=== PATIENT | male | born 1945 | race Caucasian/White ===

== ENCOUNTER → 2017-09-29 19:06 | Outpatient (CLI) | payer MEDICARE, BC | END | disposition home or self-care (01) | LOC: D.LABREF 19:06 | DX: A04.72 Enterocolitis due to Clostridium difficile, not specified as recurrent (principal) ==

== ENCOUNTER 2018-01-31 13:34 | Day surgery (SDC) | payer MEDICARE, BC ==
[~2018-01-31] VITALS: Ht 190.5 cm; Wt 122.3 kg
--- NOTE | ~2018-01-31 | OP ---
PATIENT NAME: MICHEAL RAJAN MEDICAL RECORD: [id number] :47 LOCATION:[facility] ADMISSION DATE: SURGEON: BRIANNE SINCLAIR MD DATE OF OPERATION: 01/31/2018 PROCEDURE: Colonoscopy with stool collection for xTAG and colonoscopy with biopsy. GLASS INSTALLER: Brianne Sinclair MD SCOPE: Olympus video colonoscope. MEDICATIONS: Per TIVA. The patient received 250 mg of propofol for this procedure, O2 at 4 liters. INDICATION FOR THE PROCEDURE: Recurrent CDT infection in 2015. The patient has had negative stool studies, but continues with significant diarrhea. FINDINGS: Informed consent was given. The patient was made comfortable with the above medications. After reaching an adequate level of sedation by slow IV push, the patient was placed on his left side. The rectal exam revealed very poor sphincter tone. No fissures or fistulas were appreciated. No external skin tags were seen. The colonoscope was advanced to the cecum, where the ileocecal valve and appendiceal orifice were identified. The small bowel was intubated and tissue was normal. On withdrawal of the scope, mucosa was carefully inspected. Mucosa throughout the entire colon was normal except in the rectum, where some mild inflammation was appreciated and biopsies were obtained. Additionally, the patient had pandiverticulosis without diverticulitis. On retroflexion and final withdrawal of the scope, internal hemorrhoids were seen. The scope was then withdrawn. IMPRESSION: 1. The patient with a xwbf-ym-hjvj prep. 2. Pandiverticulosis without diverticulitis. 3. Normal small bowel. 4. Normal colon tissue, but the rectum had some mild inflammation. Biopsies were obtained. We also collected stool for parasites, viruses, and bacteria to include CDT colitis. 4. Pandiverticulosis without diverticulitis. 5. Small internal hemorrhoids. 6. Poor rectal sphincter tone. PLAN: 1. The patient should eat a good high-fiber diet. 2. No caffeine. 3. No anti-inflammatory drugs which can cause a collagenous colitis. 4. Keep a food diary to determine what foods might set off his diarrhea. 5. Apjl-vtm-yansnta Imodium p.r.n., no more than 8 tablets a day. 6. Questran Light as he has diabetes, one packet b.i.d., not to be taken within one hour of other medicines. 7. Probiotics. TRANSINT:[id number] Voice Confirmation ID: [id number] DOCUMENT ID: [id number] CC: Dr. Tomlinson OPERATIVE REPORT [id number] MICHEAL RAJAN BRENDA MD at 1304 CC: HARLEY MEYERS [id number] DICTATION DATE: 01/31/18 1613 [facility] WAITER/WAITRESS: 01/31/18 1815 [facility] SDC 01/31/18 [place] [id number] [place] [id number]
[2018-01-31 14:04] LABS: HEMATOCRIT 42.7 % (42.0-54.0); HEMOGLOBIN 14.8 g/dL (13.5-17.5); MCH 32.1 pg (26.0-34.0); MCHC 34.7 g/dL (31.0-37.0); MCV 92.6 fL (80.0-100.0); MEAN PLATELET VOLUME 8.7 fL (7.4-10.4); RBC 4.61 10x6/uL (4.20-6.10); RDW 12.4 % (11.5-14.5); WBC 7.2 10x3/uL (4.8-10.8)
[2018-01-31 14:12] LABS: ANION GAP 11.8 mmol/L (8-16); CALCIUM 8.7 mg/dL (8.5-10.1); CARBON DIOXIDE 28.6 mmol/L (21.0-32.0); CREATININE - SERUM 1.2 mg/dL (0.6-1.3); POTASSIUM - SERUM 4.4 mmol/L (3.5-5.1)
[2018-01-31 14:28] VITALS: BP 105/68; Ht 190.5 cm; Wt 122.3 kg
[2018-01-31] MEDS ORDERED: ELIQUIS5 MG (14:44)
[2018-01-31] MEDS ORDERED: CILOSTAZOL50 MG PO (14:45)
[2018-01-31] MEDS ORDERED: CARVEDILOL TAB 3.1 (14:45)
[2018-01-31] MEDS ORDERED: GLUCOPHAGE1000 MG PO (14:45)
[2018-01-31] MEDS ORDERED: LOPRESSOR25 MG PO (14:46)
[2018-01-31] MEDS ORDERED: LEVOCETIRIZINE 5 MG (14:46)
[2018-01-31] MEDS ORDERED: IPRATROPIUM SPR 0.0 (14:46)
[2018-01-31] MEDS ORDERED: PAXIL20 MG PO (14:46)
[2018-01-31] MEDS ORDERED: DONEPEZIL (14:47)
[2018-01-31] MEDS ORDERED: ISOSORBIDE MONO30 M1 PO (14:47)
[2018-01-31] MEDS ORDERED: LIPITOR40 MG PO (14:47)
[2018-01-31] MEDS ORDERED: TOUJEO SOL300 UNIT/1 (14:49)
== END 2018-01-31 17:01 | disposition home or self-care (01) ==
LOC: D.OPS 13:34
PROVIDERS: Anesthesiology
DX: K57.30 Diverticulosis of large intestine without perforation or abscess without bleeding (principal); K64.8 Other hemorrhoids; R19.7 Diarrhea, unspecified; Z01.812 Encounter for preprocedural laboratory examination

== ENCOUNTER 2018-04-13 19:19 | Inpatient (IN) | payer MEDICARE, BC ==
[~2018-04-13] VITALS: Ht 190.5 cm; Wt 117.0 kg
--- NOTE | ~2018-04-13 | MORECARE ---
CASE MANAGEMENT DISCHARGE SUMMARY PATIENT: MICHEAL RAJAN UNIT: [id number] ADM DATE: 04/13/18 AGE: 72 : 46 SEX: M ROOM/BED: D.2211 AUTHOR: KYLE,DOC PHYSICIAN: REFERRING PHYSICIAN: BONI SUAREZ MD DATE OF SERVICE: 04/16/18 Discharge Plan Patient Name: MICHEAL RAJAN Facility: [facility]:[place] : 1945 Planned Disposition: Inpatient Rehab Anticipated Discharge Date: Discharge Date: Expected LOS: Initial Reviewer: [email or web address] Initial Review Date: 04/13/2018 Generated: 04/16/18 9:43 pm Comments DCP- Discharge Planning Updated by [email or web address]: Emmanuelle Brennan on 04/16/18 7:[address] Late afternoon physical therapy eval/ no OT eval/ no rehab screen/ patient stating at he wants to go home as per the [facility] notes. Physical therapy states he ambulated 100 ft w/ SBA. CM advised he will be a late discharge awaiting pt response to late GI procedure. 193- Patient states he did not know he was being discharge. Daughter stated she did not know he was being discharged. Daughter will be coming into [facility]. CM notified patient is cleared for discharge by MD. FIELDS to [facility] regarding possible discharge. Awaited CB to confirm patient is on service. Nurse called back. CM on 2 other calls. [facility] salesperson meats nurse left message hat patient is active on service. Discharge orders as presently written faxed with discharge summary to [facility]. Will F/U in the AM. DCP- Discharge Planning Updated by [id number]: Emmanuelle Brennan on 04/15/18 6:[address] LATE ENTRY PATIENT'S DAUGHTER, PATRICIO RAJAN, CALLED TO REQUEST PATIENT HAVE REHAB BEFORE RETURNING TO HOME. SHE STATES HE IS WEAK. THER ARE NO STEPS TO ENTER THE HOME BUT HE HAS 10 STEPS TOTO HIS BEDROOM ON THE TOP FLOOR THEN AN ADDITIONAL 8 STEPS. SHE REPORTS HE HAS HX OF DIZZINESS AND FALLING. HE HAS A CANE AND WALKER BUT RARELY UTILIZE THEM. NO ADDITIONAL DME. NO SAFETY BARS OR HANDLES. SHE RECENTLY RELOCATED TO ASSIST HER FATHER (6 MONTHS AGO). SHE IS HIS ONLY CHILD. PT/OT CONSULT ORDERS OBTAINED. ACUTE REHAB PRESCREEN REQUESTED OBTAINED. DAUGHTER IS PRIMARY AMPOULE EXAMINER. CORRECTION- PATIENT HAS [facility] FOR NURSING AND PHYSICAL THERAPY. CM TO FOLLOW TO [facility]. TC TO [facility], REHAB SCREENER, FOR THIS WEEKEND WITH REFERRAL. DCPIA - Discharge Planning Initial Assessment Updated by [id number]: Emmanuelle Brennan on 04/15/18 7:20 pm * Is the patient Alert and Oriented? Yes * How many steps to enter\exit or inside your home? NONE * PCP DR RAMIREZ * Pharmacy [facility] ON [address] [place] * Preadmission Environment Home with Family * ADLs Partial Dependent * Partial ADLs (Assistance needed) Bathing Dressing Medication Management * Equipment Cane Rolling Walker * Other Equipment NONE * List name and contact numbers for known caregivers / representatives who currently or will assist patient after discharge: PATRICIO RAJAN - DAUGHTER - [phone] * Verbal permission to speak to the caregivers and representatives has been obtained from the patient. No * Community resources currently utilized None * Additional services required to return to the preadmission environment? Yes * Can the patient safely return to the preadmission environment? Yes * Has this patient been hospitalized within the prior 30 days at any hospital? No Last DP export: 04/15/18 6:32 Patient Name: MICHEAL RAJAN Page 21603 at 204 All edits/amendments must be made on the electronic document DICTATION DATE: 04/16/182042 IN SERVICE EDUCATOR: CHARITY 04/16/182042 RPT#: [id number] DC DATE: STATUS: ADM IN [facility] [address] [place] [address] END OF REPORT
--- NOTE | ~2018-04-13 | MORECARE ---
CASE MANAGEMENT DISCHARGE SUMMARY PATIENT: MICHEAL RAJAN UNIT: [id number] ADM DATE: 04/13/18 AGE: 72 : 46 SEX: M ROOM/BED: D.2211 AUTHOR: SUJIT WRIGHT PHYSICIAN: REFERRING PHYSICIAN: BONI SUAREZ MD DATE OF SERVICE: 04/15/18 Discharge Plan Patient Name: MICHEAL RAJAN [facility] [facility] 1945 Planned Disposition: Inpatient Rehab Anticipated Discharge Date: Discharge Date: Expected LOS: Initial Reviewer: [email or web address] Initial Review Date: 04/13/2018 Generated: 04/15/18 8:20 pm DCPIA - Discharge Planning Initial Assessment Updated by [id number]: Emmanuelle Brennan on 04/15/18 7:20 pm * Is the patient Alert and Oriented? Yes * How many steps to enter\exit or inside your home? NONE * PCP DR RAMIREZ * Pharmacy [facility] ON [place] * Preadmission Environment Home with Family * ADLs Partial Dependent * Partial ADLs (Assistance needed) Bathing Dressing Medication Management * Equipment Cane Rolling Walker * Other Equipment NONE * List name and contact numbers for known caregivers / representatives who currently or will assist patient after discharge: PATRICIO RAJAN - DAUGHTER - [phone] * Verbal permission to speak to the caregivers and representatives has been obtained from the patient. No * Community resources currently utilized None * Additional services required to return to the preadmission environment? Yes * Can the patient safely return to the preadmission environment? Yes * Has this patient been hospitalized within the prior 30 days at any hospital? No Patient Name: MICHEAL RAJAN Page 05784 at 1920 All edits/amendments must be made on the electronic document DICTATION DATE: 04/15/181919 BINDERY PRODUCTION MANAGER: CHARITY 04/15/181919 RPT#: [id number] DC DATE: STATUS: ADM IN [facility] [address] [place] [address] END OF REPORT
--- NOTE | ~2018-04-13 | MORECARE ---
CASE MANAGEMENT DISCHARGE SUMMARY PATIENT: MICHEAL RAJAN UNIT: [id number] ADM DATE: 04/13/18 AGE: 72 : 46 SEX: M ROOM/BED: D.2211 AUTHOR: KYLEDOC PHYSICIAN: REFERRING PHYSICIAN: BONI SUAREZ MD DATE OF SERVICE: 04/15/18 Discharge Plan Patient Name: MICHEAL RAJAN Facility: [facility]:[place] : 1945 Planned Disposition: Inpatient Rehab Anticipated Discharge Date: Discharge Date: Expected LOS: Initial Reviewer: [email or web address] Initial Review Date: 04/13/2018 Generated: 04/15/18 8:32 pm Comments DCP- Discharge Planning Updated by [email or web address]: Emmanuelle Brennan on 04/15/18 6:[address] LATE ENTRY PATIENT'S DAUGHTER, PATRICIO RAJAN, CALLED TO REQUEST PATIENT HAVE REHAB BEFORE RETURNING TO HOME. SHE STATES HE IS WEAK. THER ARE NO STEPS TO ENTER THE HOME BUT HE HAS 10 STEPS TOTO HIS BEDROOM ON THE TOP FLOOR THEN AN ADDITIONAL 8 STEPS. SHE REPORTS HE HAS HX OF DIZZINESS AND FALLING. HE HAS A CANE AND WALKER BUT RARELY UTILIZE THEM. NO ADDITIONAL DME. NO SAFETY BARS OR HANDLES. SHE RECENTLY RELOCATED TO ASSIST HER FATHER (6 MONTHS AGO). SHE IS HIS ONLY CHILD. PT/OT CONSULT ORDERS OBTAINED. ACUTE REHAB PRESCREEN REQUESTED OBTAINED. DAUGHTER IS PRIMARY SENIOR PROPERTY ACCOUNTANT. CORRECTION- PATIENT HAS [facility] FOR NURSING AND PHYSICAL THERAPY. CM TO FOLLOW TO [facility]. TC TO [facility], REHAB SCREENER, FOR THIS WEEKEND WITH REFERRAL. DCPIA - Discharge Planning Initial Assessment Updated by [id number]: Emmanuelle Brennan on 04/15/18 7:20 pm * Is the patient Alert and Oriented? Yes * How many steps to enter\exit or inside your home? NONE * PCP DR RAMIREZ * Pharmacy [facility] [place] * Preadmission Environment Home with Family * ADLs Partial Dependent * Partial ADLs (Assistance needed) Bathing Dressing Medication Management * Equipment Cane Rolling Walker * Other Equipment NONE * List name and contact numbers for known caregivers / representatives who currently or will assist patient after discharge: PATRICIO RAJAN - DAUGHTER - [phone] * Verbal permission to speak to the caregivers and representatives has been obtained from the patient. No * Community resources currently utilized None * Additional services required to return to the preadmission environment? Yes * Can the patient safely return to the preadmission environment? Yes * Has this patient been hospitalized within the prior 30 days at any hospital? No Last DP export: 04/15/18 6:20 Patient Name: MICHEAL RAJAN Page 14355 at 1933 All edits/amendments must be made on the electronic document DICTATION DATE: 04/15/181931 SHIPPING CLERK: CHARITY 04/15/181931 RPT#: [id number] NE DATE: STATUS: ADM IN [facility] [address] [place] [address] END OF REPORT
--- NOTE | ~2018-04-13 | MORECARE ---
CASE MANAGEMENT DISCHARGE SUMMARY PATIENT: MICHEAL RAJAN UNIT: [id number] ADM DATE: 04/13/18 AGE: 72 : 46 SEX: M ROOM/BED: D.2211 AUTHOR: KYLE,DOC PHYSICIAN: REFERRING PHYSICIAN: BONI SUAREZ MD DATE OF SERVICE: 04/17/18 Discharge Plan Patient Name: MICHEAL RAJAN Facility: [facility]:[place] : 1945 Planned Disposition: Inpatient Rehab Anticipated Discharge Date: Discharge Date: 04/16/2018 Expected LOS: Initial Reviewer: [email or web address] Initial Review Date: 04/13/2018 Generated: 04/17/18 4:04 pm Comments DCP- Discharge Planning Updated by [email or web address]: Emmanuelle Brennan on 04/16/18 7:[address] Late afternoon physical therapy eval/ no OT eval/ no rehab screen/ patient stating at he wants to go home as per the [facility] notes. Physical therapy states he ambulated 100 ft w/ SBA. CM advised he will be a late discharge awaiting pt response to late GI procedure. 1930- Patient states he did not know he was being discharge. Daughter stated she did not know he was being discharged. Daughter will be coming into [facility]. CM notified patient is cleared for discharge by MD. FIELDS to [facility] regarding possible discharge. Awaited CB to confirm patient is on service. Nurse called back. CM on 2 other calls. [facility] mail distribution scheme examiner nurse left message hat patient is active on service. Discharge orders as presently written faxed with discharge summary to [facility]. Will F/U in the AM. DCP- Discharge Planning Updated by [id number]: Emmanuelle Brennan on 04/15/18 6:[address] LATE ENTRY PATIENT'S DAUGHTER, PATRICIO RAJAN, CALLED TO REQUEST PATIENT HAVE REHAB BEFORE RETURNING TO HOME. SHE STATES HE IS WEAK. THER ARE NO STEPS TO ENTER THE HOME BUT HE HAS 10 STEPS TOTO HIS BEDROOM ON THE TOP FLOOR THEN AN ADDITIONAL 8 STEPS. SHE REPORTS HE HAS HX OF DIZZINESS AND FALLING. HE HAS A CANE AND WALKER BUT RARELY UTILIZE THEM. NO ADDITIONAL DME. NO SAFETY BARS OR HANDLES. SHE RECENTLY RELOCATED TO ASSIST HER FATHER (6 MONTHS AGO). SHE IS HIS ONLY CHILD. PT/OT CONSULT ORDERS OBTAINED. ACUTE REHAB PRESCREEN REQUESTED OBTAINED. DAUGHTER IS PRIMARY PHP MYSQL DEVELOPER. CORRECTION- PATIENT HAS [facility] FOR NURSING AND PHYSICAL THERAPY. CM TO FOLLOW TO [facility]. TC TO [facility], REHAB SCREENER, FOR THIS WEEKEND WITH REFERRAL. DCPIA - Discharge Planning Initial Assessment Updated by [email or web address]: Emmanuelle Brennan on 04/15/18 7:20 pm * Is the patient Alert and Oriented? Yes * How many steps to enter\exit or inside your home? NONE * PCP DR RAMIREZ * [facility]acy [facility] [address] * Preadmission Environment Home with Family * ADLs Partial Dependent * Partial ADLs (Assistance needed) Bathing Dressing Medication Management * Equipment Cane Rolling Walker * Other Equipment NONE * List name and contact numbers for known caregivers / representatives who currently or will assist patient after discharge: PATRICIO RAJAN - DAUGHTER - [phone] * Verbal permission to speak to the caregivers and representatives has been obtained from the patient. No * Community resources currently utilized None * Additional services required to return to the preadmission environment? Yes * Can the patient safely return to the preadmission environment? Yes * Has this patient been hospitalized within the prior 30 days at any hospital? No Last DP export: 04/16/18 7:43 Patient Name: MICHEAL RAJAN Page [phone] at 1504 All edits/amendments must be made on the electronic document DICTATION DATE: 04/17/18 150 CATSHOVEL DRIVER: CHARITY 04/17/18 1504 RPT#: [id number] DC DATE:04/16/18 STATUS: DIS IN [facility] [address] [place] [address] END OF REPORT
[~2018-04-13 19:19] MED LIST: CARVEDILOL TAB 3.1; CILOSTAZOL50 MG PO; DONEPEZIL; ELIQUIS5 MG PO; GLUCOPHAGE1000 MG PO; IPRATROPIUM SPR 0.0; ISOSORBIDE MONO30 M1 PO; LEVOCETIRIZINE 5 MG PO; LIPITOR40 MG PO; LOPRESSOR25 MG PO; PAXIL20 MG PO; TOUJEO SOL300 UNIT/1
[2018-04-13] MEDS ORDERED: TRESIBA FL100 UNIT/1 SC (23:47)
[2018-04-14 00:13] LABS: HEMATOCRIT 36.1 % (42.0-54.0); HEMOGLOBIN 12.4 g/dL (13.5-17.5)
[2018-04-14 00:58] VITALS: BP 121/74
[2018-04-14] MEDS ORDERED: ZOFRAN ODT4 MG/UDTAB PO (01:49)
[2018-04-14] MEDS ORDERED: PHENERGAN25 M1 PO (01:51)
[2018-04-14] MEDS ORDERED: BAYER CHEWABLE81 MG PO (01:52)
[2018-04-14] MEDS ORDERED: MULTI-DAY VITAM1 TAB PO (01:53)
[2018-04-14] MEDS ORDERED: FLOMAX0.4 MG PO (01:54)
[2018-04-14] MEDS ORDERED: DONEPEZIL HCL10 MG PO (02:02)
[2018-04-14] MEDS ORDERED: ASCORBIC ACID500 MG PO (02:03)
[2018-04-14] MEDS ORDERED: NORVASC5 MG PO (02:03)
[2018-04-14] MEDS ORDERED: GLUCOTROL 5 MG T5 MG PO (02:18)
[2018-04-14] MEDS ORDERED: REMERON15 MG PO (02:19)
[2018-04-14 02:55] VITALS: BP 134/80; BMI 31.3
[2018-04-14 05:29] LABS: BASOPHILS 0.2 % (0-2); EOSINOPHILS 2.2 % (0-7); HEMATOCRIT 35.7 % (42.0-54.0); HEMOGLOBIN 12.5 g/dL (13.5-17.5); LYMPHOCYTES 30.3 % (15-50); MCH 31.6 pg (26.0-34.0); MCV 90.2 fL (80.0-100.0); MONOCYTES 13.5 % (2-11); NEUTROPHILS 53.8 % (40-80); RBC 3.96 10x6/uL (4.20-6.10); RDW 12.9 % (11.5-14.5); WBC 5.5 10x3/uL (4.8-10.8)
[2018-04-14 05:30] LABS: PLATELET COUNT 168 10x3/uL (130-400)
[2018-04-14 05:33] LABS: APTT 23.7 SECONDS (22.8-39.4); INR 1.16 (0.85-1.17); PROTIME 14.3 SECONDS (11.6-15.0)
[2018-04-14 05:44] VITALS: BP 125/86
[2018-04-14 05:47] LABS: ALBUMIN 2.9 g/dL (3.4-5.0); ALKALINE PHOSPHATASE 80 U/L (46-116); ALT (SGPT) 34 U/L (10-68); BILIRUBIN - TOTAL 0.71 mg/dL (0.2-1.3); CALC OSMOLALITY 281 mosm/kg (275-300); CALCIUM 8.2 mg/dL (8.5-10.1); CARBON DIOXIDE 22.7 mmol/L (21.0-32.0); CHLORIDE - SERUM 105 mmol/L (98-107); GLUCOSE 133 mg/dL (74-106); POTASSIUM - SERUM 3.4 mmol/L (3.5-5.1); PROTEIN - SERUM 6.5 g/dL (6.4-8.2); SODIUM 139 mmol/L (136-145); UREA NITROGEN 17 mg/dL (7-18); eGFR NON AFRICAN AMERICAN 78 mL/min (90-120)
[2018-04-14 08:01] VITALS: BP 131/66
[2018-04-14 09:10] LABS: AMYLASE - SERUM 21 U/L (25-115); LIPASE 75 U/L (73-393)
[2018-04-14 12:07] VITALS: Ht 190.5 cm; Wt 117.0 kg
[2018-04-14 16:35] VITALS: BP 126/67
[2018-04-14 20:00] VITALS: BP 108/66
[2018-04-15] VITALS: BP 140/72
[2018-04-15 04:00] VITALS: BP 114/61
[2018-04-15 06:28] LABS: BASOPHILS 0.2 % (0-2); EOSINOPHILS 2.9 % (0-7); HEMATOCRIT 36.4 % (42.0-54.0); HEMOGLOBIN 12.6 g/dL (13.5-17.5); IMMATURE GRANULOCYTES 0.2 % (0-5); LYMPHOCYTES 26.3 % (15-50); MCH 31.4 pg (26.0-34.0); MCHC 34.6 g/dL (31.0-37.0); MCV 90.8 fL (80.0-100.0); MONOCYTES 10.7 % (2-11); NEUTROPHILS 59.7 % (40-80); PLATELET COUNT 167 10x3/uL (130-400); RBC 4.01 10x6/uL (4.20-6.10); RDW 12.8 % (11.5-14.5); WBC 5.5 10x3/uL (4.8-10.8)
[2018-04-15 06:57] LABS: CALCIUM 8.1 mg/dL (8.5-10.1); CARBON DIOXIDE 23.6 mmol/L (21.0-32.0); CHLORIDE - SERUM 107 mmol/L (98-107); POTASSIUM - SERUM 3.5 mmol/L (3.5-5.1); SODIUM 143 mmol/L (136-145); eGFR NON AFRICAN AMERICAN 78 mL/min (90-120)
[2018-04-15 07:08] LABS: CALC OSMOLALITY 282 mosm/kg (275-300); GLUCOSE 85 mg/dL (74-106); UREA NITROGEN 10 mg/dL (7-18)
[2018-04-15 08:36] VITALS: BP 148/91
[2018-04-15 13:15] VITALS: BP 173/92
[2018-04-15] MEDS ORDERED: FLORAJEN3 CAPS460 MG PO (14:25)
[2018-04-15] MEDS ORDERED: LEVOFLOXACIN500 MG PO (14:26)
[2018-04-15] MEDS ORDERED: FLAGYL500 MG PO (14:27)
[2018-04-15] MEDS ORDERED: PROTONIX40 MG PO (14:29)
[2018-04-15] MEDS ORDERED: CARAFATE1 G/10 ML PO (14:29)
[2018-04-15] MEDS ORDERED: PEPCID AC20 MG PO (14:29)
[2018-04-15 16:44] VITALS: BP 163/98
[2018-04-15 20:00] VITALS: BP 157/82
[2018-04-16] VITALS: BP 120/66
[2018-04-16 04:00] VITALS: BP 135/85
[2018-04-16 05:32] LABS: BASOPHILS 0.3 % (0-2); EOSINOPHILS 1.8 % (0-7); HEMATOCRIT 39.2 % (42.0-54.0); HEMOGLOBIN 13.5 g/dL (13.5-17.5); IMMATURE GRANULOCYTES 0.2 % (0-5); LYMPHOCYTES 23.3 % (15-50); MCH 31.3 pg (26.0-34.0); MCHC 34.4 g/dL (31.0-37.0); MEAN PLATELET VOLUME 9.2 fL (7.4-10.4); MONOCYTES 12.8 % (2-11); NEUTROPHILS 61.6 % (40-80); PLATELET COUNT 180 10x3/uL (130-400); RBC 4.31 10x6/uL (4.20-6.10); RDW 12.8 % (11.5-14.5)
[2018-04-16 05:57] LABS: ALBUMIN 3.2 g/dL (3.4-5.0); ALKALINE PHOSPHATASE 92 U/L (46-116); ALT (SGPT) 37 U/L (10-68); BILIRUBIN - TOTAL 0.89 mg/dL (0.2-1.3); CALC OSMOLALITY 281 mosm/kg (275-300); CALCIUM 8.7 mg/dL (8.5-10.1); CARBON DIOXIDE 25.4 mmol/L (21.0-32.0); CHLORIDE - SERUM 105 mmol/L (98-107); GLUCOSE 132 mg/dL (74-106); POTASSIUM - SERUM 3.7 mmol/L (3.5-5.1); PROTEIN - SERUM 7.1 g/dL (6.4-8.2); SODIUM 141 mmol/L (136-145); UREA NITROGEN 10 mg/dL (7-18); eGFR NON AFRICAN AMERICAN 78 mL/min (90-120)
[2018-04-16 09:09] VITALS: BP 125/98
[2018-04-16 12:50] VITALS: BP 106/62
[2018-04-16 16:43] VITALS: BP 122/73
[2018-04-16 16:59] VITALS: BP 122/73
== END 2018-04-16 20:55 | disposition home health service (06) | DRG 382 ==
LOC: D.MS 19:19
PROVIDERS: Family Medicine; Internal Medicine Gastroenterology
PROC: 0DB98ZX Excision of Duodenum, Via Natural or Artificial Opening Endoscopic, Diagnostic (ICD-10-PCS; principal; 2018-04-15 12:00)
DX: K22.10 Ulcer of esophagus without bleeding (principal); K44.9 Diaphragmatic hernia without obstruction or gangrene; K29.00 Acute gastritis without bleeding; K29.80 Duodenitis without bleeding; E87.6 Hypokalemia; I48.91 Unspecified atrial fibrillation; I25.10 Atherosclerotic heart disease of native coronary artery without angina pectoris; E11.9 Type 2 diabetes mellitus without complications

== ENCOUNTER 2018-07-04 08:39 | Day surgery (SDC) | payer MEDICARE, BC ==
[~2018-07-04] VITALS: Ht 190.5 cm; Wt 118.2 kg
--- NOTE | ~2018-07-04 | OP ---
PATIENT NAME: MICHEAL RAJAN MEDICAL RECORD: [id number] :47 LOCATION:[facility] ADMISSION DATE: SURGEON: BRIANNE SINCLAIR MD DATE OF OPERATION: 07/04/2018 PROCEDURE: EGD with biopsy. COORDINATE MEASURING MACHINE TECHNICIAN: Brianne Sinclair MD SCOPE: Olympus video gastroscope. MEDICATIONS: Provided were propofol 100 mg IV push, O2 of 4 liters. INDICATION FOR THE PROCEDURE: To document healing of distal esophageal ulcers, which were hemorrhagic 8 weeks ago via his last EGD dated 04/15/2018. He also had findings of Veloz's esophagus. FINDINGS: Informed consent was given. The patient was made comfortable with the above medications. After reaching an adequate level of sedation by slow IV push, the patient was placed on his left side. The endoscope was then advanced under direct visualization through the posterior pharyngeal area and advanced to the distal esophagus. The previously documented distal esophageal ulcers were seen to have healed, the patient, however, does have evidence of Veloz's esophagus and multiple biopsies were obtained. On entering the stomach, moderate inflammation was seen, most pronounced within the antral area. No ulcers or erosions were appreciated. Biopsies were taken at the distal antral area as well as the proximal antrum. The duodenal bulb to the second portion had mild inflammation present. The scope was then withdrawn. IMPRESSION: 1. Healed distal esophageal ulcers. 2. Veloz esophagus, biopsied. 3. Moderate gastritis, most pronounced at the antral area. Biopsies were taken at the distal antrum and again at the proximal antrum and sent to pathology for review. 4. Mild duodenitis in the duodenal bulb and second portion. PLAN: We will ask the patient to continue famotidine at 20 mg p.o. b.i.d. and Sucralfate 1 g p.o. q.i.d. He can stop his Protonix. Caution with anti-inflammatory drugs please. Follow group reflux precautions. TRANSINT:[id number] Voice Confirmation ID: [id number] DOCUMENT ID: [id number] BRIANNE SINCLAIR MD CC: BONI SUAREZ [id number] DICTATION DATE: 07/04/18 1137 PARTS SALVAGER: 07/04/18 1150 [facility] [address] [place] [address]
[~2018-07-04 08:39] MED LIST changes: +ASCORBIC ACID500 MG PO; +BAYER CHEWABLE81 MG PO; +CARAFATE1 G/10 ML PO; +DONEPEZIL HCL10 MG PO; +FLAGYL500 MG PO; +FLOMAX0.4 MG PO; +FLORAJEN3 CAPS460 MG PO; +GLUCOTROL 5 MG T5 MG PO; +LEVOFLOXACIN500 MG PO; +MULTI-DAY VITAM1 TAB PO; +NORVASC5 MG PO; +PEPCID AC20 MG PO; +PHENERGAN25 M1 PO; +PROTONIX40 MG PO; +REMERON15 MG PO; +TRESIBA FL100 UNIT/1 SC; +ZOFRAN ODT4 MG/UDTAB PO
[2018-07-04 10:00] LABS: CALC OSMOLALITY 284 mosm/kg (275-300); CALCIUM 8.9 mg/dL (8.5-10.1); CARBON DIOXIDE 25.3 mmol/L (21.0-32.0); CHLORIDE - SERUM 104 mmol/L (98-107); CREATININE - SERUM 0.9 mg/dL (0.6-1.3); GLUCOSE 95 mg/dL (74-106); POTASSIUM - SERUM 3.5 mmol/L (3.5-5.1); SODIUM 143 mmol/L (136-145); UREA NITROGEN 12 mg/dL (7-18); eGFR NON AFRICAN AMERICAN 88 mL/min (90-120)
[2018-07-04 10:04] VITALS: BP 121/74; Ht 190.5 cm; Wt 118.2 kg
[2018-07-04 10:07] LABS: BASOPHILS 0.4 % (0-2); EOSINOPHILS 2.6 % (0-7); HEMATOCRIT 35.2 % (42.0-54.0); IMMATURE GRANULOCYTES 0.2 % (0-5); LYMPHOCYTES 22.8 % (15-50); MCH 31.9 pg (26.0-34.0); MCHC 34.1 g/dL (31.0-37.0); MCV 93.6 fL (80.0-100.0); MEAN PLATELET VOLUME 8.9 fL (7.4-10.4); MONOCYTES 10.4 % (2-11); NEUTROPHILS 63.6 % (40-80); PLATELET COUNT 210 10x3/uL (130-400); RBC 3.76 10x6/uL (4.20-6.10); RDW 13.9 % (11.5-14.5); WBC 5.4 10x3/uL (4.8-10.8)
[2018-07-04 10:11] LABS: INR 1.05 (0.85-1.17); PROTIME 13.2 SECONDS (11.6-15.0)
[2018-07-04 10:12] LABS: APTT 24.9 SECONDS (22.8-39.4)
[2018-07-04] MEDS ORDERED: IMODIUM2 MG PO (10:38)
--- NOTE | 2018-07-04 12:19 | NUR ---
DC INSTRUCTIONS GIVEN TO PT. STATES UNDERSTANDING. DC'D IV CATH FULLY INTACT.
--- NOTE | 2018-07-04 12:37 | NUR ---
PT LEFT UNIT VIA WC AT 1230
== END 2018-07-04 12:30 | disposition home or self-care (01) ==
LOC: D.OPS 08:39
PROVIDERS: Anesthesiology; ATTEND Internal Medicine Gastroenterology
DX: K22.70 Barrett's esophagus without dysplasia (principal); K29.70 Gastritis, unspecified, without bleeding; K29.80 Duodenitis without bleeding; K29.50 Unspecified chronic gastritis without bleeding; Z01.812 Encounter for preprocedural laboratory examination

== ENCOUNTER → 2020-07-28 18:06 | Outpatient (CLI) | payer MEDICARE ==
[2018-07-04 10:04] VITALS: BMI 32.5
[~2020-07-28 18:06] MED LIST changes: +IMODIUM2 MG PO
[2020-07-28 18:30] LABS: BILIRUBIN NEGATIVE (NEGATIVE); KETONE NEGATIVE (NEGATIVE); NITRITE POSITIVE (NEGATIVE); UROBILINOGEN NORMAL mg/dL (< 2); WHITE CELLS - URINE >50 HPF (0-1)
[2020-07-28 18:31] LABS: BACTERIA MANY HPF (NONE SEEN); SQUAMOUS EPITHELIAL 0-5 HPF (0-4)
== END | disposition home or self-care (01) ==
LOC: D.LABREF 18:06
PROVIDERS: ATTEND Internal Medicine
DX: N39.0 Urinary tract infection, site not specified (principal)

== ENCOUNTER → 2020-08-22 18:27 | Outpatient (CLI) | payer MEDICARE ==
[2018-07-04 10:04] VITALS: BMI 32.5
[2020-08-22 19:38] LABS: BILIRUBIN NEGATIVE (NEGATIVE); KETONE NEGATIVE (NEGATIVE); NITRITE POSITIVE (NEGATIVE); UROBILINOGEN NORMAL mg/dL (< 2)
[2020-08-22 19:39] LABS: BACTERIA MANY HPF (NONE SEEN); WHITE CELLS - URINE 25-50 HPF (0-1)
== END | disposition home or self-care (01) ==
LOC: D.LABREF 18:27
PROVIDERS: ATTEND Internal Medicine
DX: N39.0 Urinary tract infection, site not specified (principal)

== ENCOUNTER → 2020-09-09 22:12 | Outpatient (CLI) | payer MEDICARE ==
[2018-07-04 10:04] VITALS: BMI 32.5
[2020-09-09 23:00] LABS: BILIRUBIN NEGATIVE (NEGATIVE); KETONE NEGATIVE (NEGATIVE); NITRITE NEGATIVE (NEGATIVE); UROBILINOGEN NORMAL mg/dL (< 2)
[2020-09-09 23:01] LABS: BACTERIA FEW HPF (NONE SEEN); SQUAMOUS EPITHELIAL 0-5 HPF (0-4)
== END | disposition home or self-care (01) ==
LOC: D.LABREF 22:12
PROVIDERS: ATTEND Internal Medicine
DX: N39.0 Urinary tract infection, site not specified (principal)